=== PATIENT | male | born 1945 | race Caucasian/White ===

== ENCOUNTER 2017-01-12 11:59 | Day surgery (SDC) | payer OTHER, BC ==
[~2017-01-12] VITALS: Ht 396.2 cm; Wt 114.4 kg
[~2017-01-12 11:59] MED LIST: ASPIR 8181 M1 PO; DULERA 200 MCG/13 GM IH; ERGOCALCIF50000 UNIT PO; ISOSORBIDE MONO60 MG PO; METOPROLOL TART50 MG PO; PROVENTIL HFA6.7 GM IH; ROPINIROLE HCL1 MG PO; TRAMADOL HCL50 MG PO; TRICOR48 MG PO; WELCHOL625 MG PO; ZOCOR40 MG PO
[2017-01-12 12:48] VITALS: BP 136/91
[2017-01-12 20:50] VITALS: BP 134/84
[2017-01-12 21:06] VITALS: BP 134/84
[2017-01-13] VITALS: BP 139/78
[2017-01-13 04:00] VITALS: BP 132/82
[2017-01-13 07:54] VITALS: BP 124/82
[2017-01-13] MEDS ORDERED: CYCLOBENZAPRINE10 MG PO ×2 (08:04→08:39)
[2017-01-13] MEDS ORDERED: HYDROCODON-ACE1 EAC7 PO ×2 (08:04→08:39)
== END 2017-01-13 11:52 | disposition home or self-care (01) ==
LOC: SDC 11:59 → 2SOUTH 15:45 → 3EAST 20:20 → 2SOUTH 20:20 → 3EAST 20:40
DX: M47.22 Other spondylosis with radiculopathy, cervical region (principal); M43.22 Fusion of spine, cervical region; M43.10 Spondylolisthesis, site unspecified; I10 Essential (primary) hypertension; I25.10 Atherosclerotic heart disease of native coronary artery without angina pectoris; J44.9 Chronic obstructive pulmonary disease, unspecified; E78.00 Pure hypercholesterolemia, unspecified; K21.9 Gastro-esophageal reflux disease without esophagitis; G47.30 Sleep apnea, unspecified; Z95.1 Presence of aortocoronary bypass graft; Z79.82 Long term (current) use of aspirin
CPT/HCPCS: 72040; 76000; 94640; 94799; 99202; G0378; J0131; J1100; J2405; J2710; J3010; J3480